=== PATIENT | male | born 1990 | race Caucasian/White ===

== ENCOUNTER 2024-06-08 18:37 | Emergency (ER) | payer OTHER ==
[~2024-06-08] VITALS: Ht 185.4 cm; Wt 86.2 kg
[~2024-06-08 18:37] MED LIST: ACET325 PO; Percocet 10-321 EACH PO; Zithromax250 MG PO
[2024-06-08 18:50] VITALS: BP 136/76
[2024-06-08] MEDS ORDERED: CORTISONE60 GM TOP (21:24)
[2024-06-08] MEDS ORDERED: Triamcinolone Inj Susp 40 MG / ML 1ML Vial IM ONE (21:25)
[2024-06-08] MEDS ORDERED: Hydrocortisone 1% Cream 30 gm TOP ONE (21:25)
== END 2024-06-08 22:04 | disposition home or self-care (01) ==
LOC: ER 18:37
DX: L25.5 Unspecified contact dermatitis due to plants, except food (principal); F17.200 Nicotine dependence, unspecified, uncomplicated; Z79.899 Other long term (current) drug therapy
CPT/HCPCS: 99283; A9270; J3301

== ENCOUNTER 2024-07-17 07:23 | Emergency (ER) | payer OTHER ==
[~2024-07-17] VITALS: Ht 185.4 cm; Wt 86.2 kg
[~2024-07-17 07:23] MED LIST changes: +CORTISONE60 GM TOP
[2024-07-17] MEDS ORDERED: Ketorolac Tromethamine 15mg Vial IM ONE (09:25)
[2024-07-17] MEDS ORDERED: IBUP600 PO (09:55)
[2024-07-17] MEDS ORDERED: FAMO20 PO (10:23)
[2024-07-17 10:49] VITALS: BP 148/89
== END 2024-07-17 10:50 | disposition home or self-care (01) ==
LOC: ER 07:23
DX: M24.411 Recurrent dislocation, right shoulder (principal); F17.290 Nicotine dependence, other tobacco product, uncomplicated; W22.8XXA Striking against or struck by other objects, initial encounter
CPT/HCPCS: 73030; 96372; 99283-25; J1885

== ENCOUNTER → 2024-08-30 | Outpatient (CLI) | payer OTHER ==
[~2024-08-30] MED LIST changes: +AMOCLA875 PO; +FAMO20 PO; +IBUP600 PO; +METO10 PO; +PRED20 PO
== END ==
LOC: LAB 16:31 → LAB SHORT 16:31
DX: J02.9 Acute pharyngitis, unspecified (principal)
CPT/HCPCS: 87081

== ENCOUNTER 2024-09-02 15:22 | Emergency (ER) | payer OTHER ==
[~2024-09-02] VITALS: Ht 185.4 cm; Wt 77.1 kg
[~2024-09-02 15:22] MED LIST changes: -AMOCLA875 PO; -METO10 PO; -PRED20 PO
[2024-09-02 15:30] VITALS: BP 142/82
[2024-09-02] MEDS ORDERED: AMOCLA875 PO ×3 (17:05→17:22)
== END 2024-09-02 17:30 | disposition home or self-care (01) ==
LOC: ER 15:22
DX: K04.7 Periapical abscess without sinus (principal); F17.290 Nicotine dependence, other tobacco product, uncomplicated; Z79.899 Other long term (current) drug therapy
CPT/HCPCS: 86308; 99283

== ENCOUNTER 2024-09-04 12:46 | Emergency (ER) | payer OTHER ==
[~2024-09-04] VITALS: Ht 185.4 cm; Wt 69.0 kg
[~2024-09-04 12:46] MED LIST changes: +AMOCLA875 PO
[2024-09-04 13:24] VITALS: BP 129/95
[2024-09-04] MEDS ORDERED: Ondansetron HCl 2 MG / ML 2ML Vial IV PRN (13:30)
[2024-09-04 13:50] LABS: Hematocrit 44.1 % (37.0-53.0); Hemoglobin 15.6 g/dL (13.5-17.5); Mean Corpuscular HGB 30.1 pg (26.0-34.0); Mean Corpuscular HGB Conc 35.4 g/dL (31.5-36.5); Mean Corpuscular Volume 85 fL (80-100); Mean Platelet Volume 9.4 fL (9.1-12.4); Platelet Count 383 K/mm3 (150-400); RDW Coefficient Variation 12.2 % (11.7-14.2); RDW Standard Deviation 38.1 fL (35.1-46.3); Red Blood Cell Count 5.18 M/mm3 (4.30-5.90); White Blood Cell Count 9.23 K/mm3 (4.00-11.30)
[2024-09-04 14:08] LABS: Albumin/Globulin Ratio 0.7 (0.8-1.8); Bilirubin, Total 0.8 mg/dL (0.1-1.0); Bun/Creatinine Ratio 17.5 (12.0-20.0); Calcium, Blood 10.1 mg/dL (8.5-10.1); Creatinine, Blood 0.97 mg/dL (0.60-1.20); Globulin, Blood 5.6 g/dL (2.2-4.0); Potassium, Blood 3.6 mmol/L (3.5-5.5); Total Protein, Blood 9.6 g/dL (6.4-8.2)
[2024-09-04 14:25] LABS: BASOPHILS ABSOLUTE MAN 0.09 K/mm3 (0.00-0.23); BASOPHILS PERCENT MAN 1 % (0-2); EOSINOPHILS PERCENT MAN 0 % (0-6); LYMPHOCYTES PERCENT MAN 25 % (21-46); MONOCYTES ABSOLUTE MAN 0.27 K/mm3 (0.16-1.47); MONOCYTES PERCENT MAN 3 % (4-13); NEUTROPHILS ABSOLUTE MAN 6.55 K/mm3 (1.96-9.15); SEG NEUTROPHILS PERCENT MAN 71 % (41-73); TOTAL CELLS COUNTED 100
[2024-09-04] MEDS ORDERED: Metoclopramide HCl 5MG / ML 2ML Vial IV ONE (15:40)
[2024-09-04] MEDS ORDERED: Dexamethasone Sod Phos 10 MG/ML 1ML VIAL IV ONE (15:40)
[2024-09-04] MEDS ORDERED: NS 1,000 ML IV SCH (15:40)
[2024-09-04] MEDS ORDERED: METO10 PO (17:59)
[2024-09-04] MEDS ORDERED: PRED20 PO (17:59)
== END 2024-09-04 18:18 | disposition home or self-care (01) ==
LOC: ER 12:46
PROVIDERS: Emergency Medicine
DX: K04.7 Periapical abscess without sinus (principal); J36 Peritonsillar abscess; R11.2 Nausea with vomiting, unspecified; F17.290 Nicotine dependence, other tobacco product, uncomplicated; Z79.52 Long term (current) use of systemic steroids; Z79.899 Other long term (current) drug therapy; Z59.89 Other problems related to housing and economic circumstances
CPT/HCPCS: 80053; 83690; 85025; 96374; 96375; 99283-25; J1100; J2405; J2765; J7030

== ENCOUNTER 2024-12-16 13:56 | Emergency (ER) | payer OTHER ==
[~2024-12-16] VITALS: Ht 185.4 cm; Wt 83.9 kg
[~2024-12-16 13:56] MED LIST changes: +METO10 PO; +PRED20 PO
[2024-12-16 14:17] VITALS: BP 128/89
[2024-12-16] MEDS ORDERED: Doxycycline Hyclate 100 MG TAB PO ONE (14:25)
[2024-12-16] MEDS ORDERED: Amoxicillin/Clavulanate K 875 MG Tab PO ONE (14:25)
[2024-12-16] MEDS ORDERED: Ketorolac Tromethamine 15mg Vial IM ONE (14:25)
[2024-12-16] MEDS ORDERED: DOXY100 PO (14:36)
[2024-12-16] MEDS ORDERED: AMOCLA875 PO (14:36)
== END 2024-12-16 15:11 | disposition home or self-care (01) ==
LOC: ER 13:56
DX: L03.113 Cellulitis of right upper limb (principal); F17.200 Nicotine dependence, unspecified, uncomplicated; Z79.52 Long term (current) use of systemic steroids; Z79.899 Other long term (current) drug therapy
CPT/HCPCS: 96372; 99283-25; A9270; J1885

== ENCOUNTER 2025-03-11 20:03 | Emergency (ER) | payer OTHER ==
[~2025-03-11] VITALS: Ht 162.6 cm; Wt 59.0 kg
[~2025-03-11 20:03] MED LIST changes: +DOXY100 PO
[2025-03-11 20:21] VITALS: BP 135/80
[2025-03-11] MEDS ORDERED: Clobetasol Prop 0.05% Cream 15 gm TOP ONE (21:00)
[2025-03-11] MEDS ORDERED: Triamcinolone Inj Susp 40 MG / ML 1ML Vial IM ONE (21:00)
[2025-03-11] MEDS ORDERED: CLOB.05TO TOP (21:06)
== END 2025-03-11 21:27 | disposition home or self-care (01) ==
LOC: ER 20:03
DX: L23.7 Allergic contact dermatitis due to plants, except food (principal); F17.200 Nicotine dependence, unspecified, uncomplicated
CPT/HCPCS: 96372; 99282-25; A9270; J3301

== ENCOUNTER → 2025-07-07 | Outpatient (CLI) | payer OTHER ==
[~2025-07-07] MED LIST changes: +CLOB.05TO TOP
[2025-07-07 08:53] LABS: BASOPHILS ABSOLUTE AUTO 0.03 K/mm3 (0.00-0.23); BASOPHILS PERCENT AUTO 1 % (0-2); EOSINOPHILS ABSOLUTE AUTO 0.12 K/mm3 (0.00-0.68); EOSINOPHILS PERCENT AUTO 2 % (0-6); Hematocrit 40.7 % (37.0-53.0); Hemoglobin 14.0 g/dL (13.5-17.5); IMMATURE GRAN ABSOLUTE AUTO 0.01 K/mm3 (0.00-0.10); IMMATURE GRAN PERCENT AUTO 0 % (0-1); LYMPHOCYTES ABSOLUTE AUTO 1.51 K/mm3 (0.84-5.20); LYMPHOCYTES PERCENT AUTO 27 % (21-46); MONOCYTES ABSOLUTE AUTO 0.45 K/mm3 (0.16-1.47); MONOCYTES PERCENT AUTO 8 % (4-13); Mean Corpuscular HGB Conc 34.4 g/dL (31.5-36.5); Mean Corpuscular Volume 89 fL (80-100); NEUTROPHILS ABSOLUTE AUTO 3.51 K/mm3 (1.96-9.15); NEUTROPHILS PERCENT AUTO 62 % (41-73); NRBC ABSOLUTE 0.00 K/mm3 (0.00-0.02); NRBC Auto 0.0 /100 WBC (0.0-0.2); Platelet Count 272 K/mm3 (150-400); RDW Coefficient Variation 12.5 % (11.7-14.2); RDW Standard Deviation 40.7 fL (35.1-46.3)
[2025-07-07 09:07] LABS: Alanine Aminotransfer (ALT/SGP 26.0 U/L (12-78); Albumin, Blood 4.3 g/dL (3.4-5.0); Albumin/Globulin Ratio 1.3 (0.8-1.8); Anion Gap 13.0 mmol/L (3-11); Aspartate Aminotrans (AST/SGOT 23.0 U/L (12-37); Bilirubin, Total 0.7 mg/dL (0.1-1.0); Blood Urea Nitrogen 19.0 mg/dL (8-24); CO2, Blood 28.0 mmol/L (21-32); Calcium, Blood 8.9 mg/dL (8.5-10.1); Chloride, Blood 102.0 mmol/L (98-108); Creatinine, Blood 1.03 mg/dL (0.60-1.20); Globulin, Blood 3.3 g/dL (2.2-4.0); Glucose, Blood 112.0 mg/dL (70-99); Magnesium, Blood 1.9 mg/dL (1.6-2.4); Potassium, Blood 3.8 mmol/L (3.5-5.5); Sodium, Blood 139.0 mmol/L (136-145); Total Protein, Blood 7.6 g/dL (6.4-8.2)
== END | disposition home or self-care (01) ==
LOC: LAB 08:50 → LAB SHORT 08:50
PROVIDERS: Chiropractor
DX: R07.81 Pleurodynia (principal)
CPT/HCPCS: 80053; 83735; 84484; 85025; 85379